=== PATIENT | male | born 1990 | race Caucasian/White ===

== ENCOUNTER 2022-10-22 09:41 | Inpatient (IN) | payer OTHER, SELFPAY ==
--- NOTE | 2022-10-22 | ECG_ITS ---
Test Reason : COCAINE USE Blood Pressure : / mmHG Vent. Rate : 081 BPM Atrial Rate : 081 BPM P-R Int : 124 ms QRS Dur : 084 ms QT Int : 356 ms P-R-T Axes : 035 081 047 degrees QTc Int : 413 ms Normal sinus rhythm Normal ECG No previous ECGs available Referred By: Cailin Souza Electronically Signed By:ERLIN PALACIOS MD
[2022-10-22 09:49] VITALS: BP 138/81; BP 142/90; PULSE 86; PULSE 96; RESP 14; TEMP 36.6; O2SAT 98; BMI 28.7
--- NOTE | 2022-10-22 10:35 | ED_ITS ---
HPI - Psych General Chief Complaint: Psychiatric Symptoms Stated Complaint: SI, SEC 12 Time Seen by Provider: 10/22/22 09:55 Source: patient and EMS Mode of arrival: EMS Limitations: no limitations History of Present Illness HPI Narrative: 32-year-old male with a history depression, opiate use disorder, alcohol use disorder presents on a Section 12 with reports of depression. Per the Section 12 patient reports suicidal thoughts the patient denies this from a now. Patient denies any homicidal ideations, hallucinations. Patient reports she was released from [facility] several days ago where he was for inpatient detox for alcohol and heroin. Patient reports is being released he has been drinking daily and using heroin daily. Patient reports sniffing about 1 bundle of heroin a day and unable to quantify his alcohol use. He is on methadone 80 mg daily and received his dose today. He has no physical complaints. Related Data Home Medications Medication Instructions Recorded Confirmed acetaminophen 500 mg tablet 1 tab PO Q6H PRN Pain 10/22/22 10/22/22 aripiprazole 5 mg tablet 1 tab PO DAILY 10/22/22 10/22/22 diphenhydramine HCl 25 mg capsule 50 mg PO BEDTIME 10/22/22 10/22/22 gabapentin 400 mg capsule 1 cap PO TID 10/22/22 10/22/22 hydroxyzine pamoate 25 mg capsule 50 mg PO BID 10/22/22 10/22/22 melatonin 10 mg tablet 1 tab PO BEDTIME 10/22/22 10/22/22 thiamine HCl (vitamin B1) 100 mg 1 tab PO DAILY 10/22/22 10/22/22 tablet (Vitamin B-1) venlafaxine 150 mg 1 cap PO DAILY 10/22/22 10/22/22 capsule,extended release 24 hr Allergies Allergy/AdvReac Type Severity Reaction Status Date / Time sulfamethoxazole Allergy Anaphylaxis Verified 10/22/22 10:33 [From Bactrim] trimethoprim [From Bactrim] Allergy Anaphylaxis Verified 10/22/22 10:33 Review of Systems Review of Systems: Yes all other systems are reviewed and are negative Constitutional: Constitutional: Reports no additional constitutional complaints, Denies body ache(s), Denies chills, Denies fever(s), Denies headache(s) and Denies weakness Eyes: Eyes: Reports no additional eye complaints and Denies change in vision ENT: Reports system reviewed and no additional complaints, except as documented, Denies dizziness, Denies headache(s), Denies nasal congestion, Denies nasal discharge and Denies neck pain Cardiovascular: Cardiovascular: Reports no additional cardiovascular complaints, Denies chest pain, Denies leg edema and Denies dyspnea Respiratory: Respiratory: Reports no additional respiratory complaints, Denies cough and Denies dyspnea Gastrointestinal: Gastrointestinal: Reports no additional gastrointestinal complaints, Denies abdominal pain, Denies diarrhea, Denies nausea and Denies vomiting Genitourinary: Genitourinary: Denies urinary incontinence Musculoskeletal: Musculoskeletal: Reports no additional musculoskeletal complaints, Denies back pain, Denies arthralgias, Denies joint swelling, Denies neck pain, Denies numbness and Denies tingling Integumentary/Breasts: Skin/Breast: Reports system reviewed and no additional complaints, except as docu and Denies rash Neurologic: Reports system reviewed and no additional complaints, except as documented, Denies Abnormal speech present, Denies dizziness, Denies headache(s), Denies numbness, Denies tingling and Denies weakness Psychiatric: Psychiatric: Reports depression and Denies suicidal ideation [facility] Past Medical History Attestation statement: The following information was validated with the patient. Source: old records reviewed and nursing notes reviewed Social History Social History Alcohol intake: current Alcohol intake frequency: 3 or more drinks per day Alcohol type: beer Smoked in Last 30 Days: Yes Use of substances other than those prescribed or required for medical reasons: Yes Substance Use Type: Heroin Substance Use Frequency: Daily Last Used Substance: Days (ago) Advance Directives: No Physical Exam Vital Signs: Vital Signs: Last Vital Signs Temp 97.8 F 10/22/22 13:06 Pulse 72 10/22/22 13:06 Resp 16 10/22/22 13:06 BP 142/93 H 10/22/22 13:06 Pulse Ox 100 10/22/22 13:06 O2 Del Method 10/22/22 13:06 BMI result Body Mass Index 28.7 Const: General: cooperative, healthy appearing, comfortable and no acute distress Orientation/consciousness: patient oriented x3 Limitations: no limitations HEENT: Head: Yes normal to inspection Ears: hearing grossly normal bilaterally General nose exam: Normal external nose present Face and sinus: Yes normal facial exam Mouth: Normal oral and palatal mucosa present Throat: Yes posterior oropharynx normal Eyes: General: appearance normal, both eyes and all related structures Pupils: Equal, round and reactive pupils present Neck: Neck: Yes normal visual inspection Chest: Chest palpation & inspection: normal inspection of the chest Resp: Effort & Inspection: normal respiratory effort Auscultation: clear to auscultation bilaterally Cardio: Rate: regular rate Rhythm: regular rhythm Peripheral pulses: Peripheral pulses 2+ throughout GI: Inspection: Yes normal to inspection Palpation (GI): Soft to palpation and nontender Auscultation: normal bowel sounds Back/Spine/Pelvis: Thoracic/Lumbar Spine: thoracic and lumbar spine normal to inspection Skin: General skin exam: no rashes or lesions noted Neuro: General: patient oriented x3, no focal motor deficits and normal sensation to monofilament Cranial nerves: Yes CN's II-XII intact bilaterally and Yes Equal, round and reactive pupils present Cognition (Neuro): normal cognition Speech: No Abnormal speech present Gait exam (Neuro): Normal gait present Motor exam (neuro): 5/5 motor strength present throughout Extrem: General: Yes normal to inspection Course Course Course Narrative: Reviewed labs which show mildly elevated AST and ALT which are likely secondary to alcohol use disorder. All other labs are unremarkable. No concern for acute ingestion or trauma. Patient placed in physician observation pending disposition Reevaluation(s) Reevaluation #1: Patient admitted to for psych Medications Administered Discontinued Medications Generic Name Dose Route Start Last Admin Trade Name Freq PRN Reason Stop Dose Admin Nicotine 21 mg 10/22/22 10:35 10/22/22 10:39 Nicotine 21 Mg Patch.Td24 TRANSDERMA 10/22/22 10:36 21 mg ONCE ONE Administration Medical Decision Making Medical Decision Making [facility] Narrative: 32-year-old male with a history of opiate use disorder, alcohol use disorder, depression here with complaints of feeling depressed, continuing to use heroin and alcohol with recent discharge from detox facility. Patient sent in on a Section 12 for suicidal thoughts. Patient now currently denying SI. Will check labs, drug screen. No concern for acute ingestion or trauma. Patient will need crisis evaluation once medically cleared Discharge Plan Discharge Clinical Impression: Depression Patient Disposition: Admitted As Inpatient Interventions: King-Suicide Risk Severity Scale Last Done: 10/22/22 10:24 Admission Worksheet (ED) Last Done: 10/22/22 16:44 Discharge Date/Time: 10/22/22 16:45
[2022-10-22] MEDS: Nicotine 21 MG PATCH.TD24 TRANSDERMA (10:39)
[2022-10-22 11:04] LABS: MANUAL DIFF FLAG NO
[2022-10-22 11:07] LABS: Basophils Percent Auto 0.3 % (0-2); Eosinophils Absolute Auto 0.1 X10*3/uL (0.0-0.4); Eosinophils Percent Auto 0.9 % (0-4); Hematocrit 39.1 % (42.0-52.0); Hemoglobin 13.3 g/dl (14.0-18.0); Imm Gran Abs Auto 0.03 X10*3/uL (0.00-0.03); Imm Gran Pct Auto 0.3 % (0.0-0.4); Lymphocytes Absolute Auto 1.7 X10*3/uL (1.2-4.9); Lymphocytes Percent Auto 16.4 % (20-40); Mean Corpuscular Hemoglobin 31.5 pg (27.0-33.0); Mean Corpuscular Volume 92.7 fL (80.0-98.0); Mean Platelet Volume 9.8 fL (9.4-12.4); Monocytes Absolute Auto 0.7 X10*3/uL (0.1-1.2); Neutrophils Absolute Auto 7.6 x10*3/uL (2.0-8.3); Neutrophils Percent Auto 75.1 % (45-73); Platelet Count 322 X10*3/uL (160-400); Red Blood Count 4.22 X10*6/uL (4.60-5.80); White Blood Count 10.2 X10*3/uL (4.8-10.8)
[2022-10-22 11:24] LABS: Ethanol < 10 mg/dL
[2022-10-22 11:33] LABS: Alanine Aminotransferase 44 U/L (0-40); Albumin Level 4.4 g/dL (3.5-5.0); Alkaline Phosphatase 86 U/L (39-117); Anion Gap 10 (12-20); Aspartate Amino Transferase 45 U/L (5-37); Bilirubin Direct 0.2 mg/dL (0.0-0.5); Bilirubin Total 0.5 mg/dL (0.0-1.0); Blood Urea Nitrogen 9 mg/dL (9-16); Calcium 9.2 mg/dL (8.4-10.2); Carbon Dioxide 30 mmol/L (22-29); Chloride 103 mmol/L (96-108); Creatinine Clr Calc Pharmacy 160.1; Estimated Glomerular Filt Rate > 60; Glucose Random 115 mg/dL (60-115); Salicylate < 5.0 mg/dL (15-30); Sodium 139 mmol/L (135-145); Total Protein 6.7 g/dL (6.5-8.0)
[2022-10-22 12:32] LABS: Fentanyl, urine POSITIVE (Not Detect)
[2022-10-22 12:44] LABS: Amphetamine Screen Urine Not Detected (Not Detect); Barbiturates, Urine Not Detected (Not Detect); Benzodiazepines Screen Urine Not Detected (Not Detect); Cannabinoid Screen Urine POSITIVE (Not Detect); Cocaine Screen Urine POSITIVE (Not Detect); Opiate Screen Urine Not Detected (Not Detect)
--- NOTE | 2022-10-22 12:53 | PHA.MEDREC ---
Pharmacy Consult ? Medication Reconciliation Pharmacy has completed the medication reconciliation. Spoke to patient at bedside
[2022-10-22 12:56] LABS: Phencyclidine Screen Urine Not Detected (Not Detect)
[2022-10-22 13:06] VITALS: BP 142/93; PULSE 72; RESP 16; TEMP 36.6; O2SAT 100
[2022-10-22 14:10] LABS: Acetaminophen LAB < 1 mcg/mL (<30)
[2022-10-22 15:28] LABS: COVID-19 Test Negative (Negative); IDNOW Serial# 16C4AD1C
[2022-10-22] MEDS: Acetaminophen 325 MG TABLET 650 MG PO (17:18)
[2022-10-22 17:21] VITALS: BP 140/91; PULSE 86; RESP 18; O2SAT 98
--- NOTE | 2022-10-22 18:37 | PC.ADMIT ---
Pt was admitted from the [facility] ED POD at 1645. Pt is a CV. Pt presented to Crisis as a walk-in. Reporting struggling with sobriety. Pt has had multiple detox admissions. Pt reports depression in regards to relapsing on alcohol and opioids. Pt was positive for Fentanyl, Cocaine, and THC. Covid negative. Pt placed on 15 minute safety checks. Safety tool and treatment plan complete. Pt oriented to unit. Pt already received flu vaccine for season. Pt is a current everyday smoker and requested nicotine replacement, aware. Pt is alert and oriented. Pt appears flat and guarded but calm and cooperative.
[2022-10-22] MEDS: hydrOXYzine HCL 25 MG TABLET 50 MG PO (19:53)
[2022-10-22] MEDS: Gabapentin 400 MG CAPSULE PO (19:53)
[2022-10-22] MEDS: diphenhydrAMINE HCL 25 MG CAPSULE 50 MG PO (19:53)
[2022-10-23 08:03] LABS: Cholesterol 200 mg/dL; HDL Cholesterol 51 mg/dL; LDL Cholesterol Calculated 121 mg/dl; Magnesium 2.5 mg/dL (1.6-2.6); Triglycerides 144 mg/dL
[2022-10-23 08:19] LABS: Thyroid Stimulating Hormone 0.52 uIU/mL (0.32-4.0)
[2022-10-23] MEDS: Thiamine HCL 100 MG TABLET PO (08:31)
[2022-10-23] MEDS: hydrOXYzine HCL 25 MG TABLET 50 MG PO ×2 (08:31→20:14)
[2022-10-23] MEDS: ARIPiprazole 5 MG TABLET PO (08:31)
[2022-10-23] MEDS: Gabapentin 400 MG CAPSULE PO ×3 (08:32→20:14)
[2022-10-23] MEDS: Venlafaxine HCl ER 150 MG CAP.ER.24H PO (08:32)
[2022-10-23] MEDS: Acetaminophen 325 MG TABLET 650 MG PO ×2 (08:32→17:09)
[2022-10-23 08:33] LABS: Estimated Average Glucose 97 mg/dL
[2022-10-23 09:07] VITALS: BP 108/60; PULSE 76; RESP 16; TEMP 36; O2SAT 96
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
[2022-10-23] MEDS: Nicotine 21 MG PATCH.TD24 TRANSDERMA (10:25)
--- NOTE | 2022-10-23 10:31 | HE.PHANOTE ---
METHADONE CONFIRMATION FORM FROM [facility]. DOSE CONFIRMED TO BE 80MG DAILY LAST DOSE 10/22
[2022-10-23] MEDS: methADONE HCl 20 MG/2 ML ORAL.CONC 80 MG PO (10:46)
[2022-10-23 11:55] LABS: Folate 15.3 ng/mL (> or = 4.0); Vitamin B12 596 pg/mL (200-900)
[2022-10-23] MEDS: buPROPion HCl XL 300 MG TAB.ER.24H PO (14:18)
[2022-10-23 16:03] VITALS: BP 136/86; PULSE 94
[2022-10-23] MEDS: diphenhydrAMINE HCL 25 MG CAPSULE 50 MG PO (20:14)
[2022-10-23] MEDS: traZODone HCL 50 MG TABLET PO (20:16)
[2022-10-24 07:50] VITALS: BP 131/71; PULSE 80; RESP 16; TEMP 37.4; O2SAT 97
[2022-10-24] MEDS: methADONE HCl 20 MG/2 ML ORAL.CONC 80 MG PO (09:48)
[2022-10-24] MEDS: Nicotine 21 MG PATCH.TD24 TRANSDERMA (09:48)
[2022-10-24] MEDS: buPROPion HCl XL 300 MG TAB.ER.24H PO (09:49)
[2022-10-24] MEDS: Venlafaxine HCl ER 150 MG CAP.ER.24H PO (09:49)
[2022-10-24] MEDS: Gabapentin 400 MG CAPSULE PO ×3 (09:49→19:27)
[2022-10-24] MEDS: hydrOXYzine HCL 25 MG TABLET 50 MG PO ×2 (09:49→19:27)
[2022-10-24] MEDS: Thiamine HCL 100 MG TABLET PO (09:49)
[2022-10-24] MEDS: ARIPiprazole 5 MG TABLET PO (09:49)
[2022-10-24] MEDS: Acetaminophen 325 MG TABLET 650 MG PO (14:05)
[2022-10-24 16:46] VITALS: BP 141/81; PULSE 110; RESP 18; TEMP 36.2; O2SAT 97
[2022-10-24] MEDS: traZODone HCL 50 MG TABLET PO (19:25)
[2022-10-24] MEDS: diphenhydrAMINE HCL 25 MG CAPSULE 50 MG PO (19:26)
--- NOTE | 2022-10-24 20:27 | P.PNPSI_ITS ---
Subjective Subjective Date of Service: 10/24/22 Reason For Visit: SI, Interim History: Patient depressed and withdrawn agreeable to increasing Abilify 7.5 mg for augmentation Mental Status Exam Mental Status Exam Narrative: Mental Status Exam Narrative: Appearance: Casually dressed sad looking Behavior: Cooperative psychomotor: Some psychomotor retardation Speech: Soft Thought proccess logical some poverty of content Thought content: Hopelessness helplessness despondency denies active self-harm Mood: Depressed Affect: Constricted to blunted SI:denies active self-harm HI:denies VH/AH:none Delusions: None noted Insight/judgment: Unclear motivation Memory/cog: Intact as tested Diagnostics Vital Signs (24Hr): Vital Signs - 24 hr 10/24/22 07:50 10/24/22 16:46 Temperature 99.4 F 97.2 F Pulse Rate 80 110 H Respiratory Rate 16 18 Blood Pressure 131/71 141/81 H Pulse Oximetry 97 97 Oxygen Delivery Method Room Air Room Air BMI result Body Mass Index 28.7 Labs Results: 10/22/22 10:59 10/22/22 10:59 Labs: Laboratory Results - last 48 hr 10/23/22 10/23/22 10/23/22 07:10 07:10 07:10 Estimat Average Glucose 97 Hemoglobin A1c % 5.0 Magnesium 2.5 Triglycerides 144 Cholesterol 200 LDL Cholesterol, Calc 121 HDL Cholesterol 51 Vitamin B12 596 Folate 15.3 TSH 0.52 Free T4 0.90 Medications Medications Current Medications Acetaminophen (Acetaminophen 325 Mg Tablet) 650 mg PO Q6H PRN PRN Reason: Headache/Pain Mild Scale (1-3) Last Admin: 10/24/22 14:05 Dose: 650 mg Al Hydroxide/Mg Hydroxide (Magnesium Hydrox/Alum Hydrox 30 Ml Oral.Susp) 30 ml PO Q6H PRN PRN Reason: Heartburn/Nausea Aripiprazole (Aripiprazole 5 Mg Tablet) 5 mg PO DAILY LUIS Last Admin: 10/24/22 09:49 Dose: 5 mg Bupropion HCl (Bupropion Hcl Xl 300 Mg Tab.Er.24h) 300 mg PO DAILY LUIS Last Admin: 10/24/22 09:49 Dose: 300 mg Diphenhydramine HCl (Diphenhydramine Hcl 25 Mg Capsule) 50 mg PO BEDTIME LUIS Last Admin: 10/24/22 19:26 Dose: 50 mg Gabapentin (Gabapentin 400 Mg Capsule) 400 mg PO TID LUIS Last Admin: 10/24/22 19:27 Dose: 400 mg Hydroxyzine HCl (Hydroxyzine Hcl 25 Mg Tablet) 50 mg PO BID [facility] Last Admin: 10/24/22 19:27 Dose: 50 mg Magnesium Hydroxide (Milk Of Magnesia 30 Ml Oral.Susp) 30 ml PO DAILY PRN PRN Reason: Constipation Methadone HCl (Methadone Hcl 20 Mg/2 Ml Oral.Conc) 80 mg PO DAILY [facility] Last Admin: 10/24/22 09:48 Dose: 80 mg Nicotine (Nicotine 21 Mg Patch.Td24) 21 mg TRANSDERMA DAILY [facility] Last Admin: 10/24/22 09:48 Dose: 21 mg Pharmacy Consult (Consult Rx Perform Med Rec) 1 each MISCELLANE ONCE PRN PRN Reason: Consult order Thiamine HCl (Thiamine Hcl 100 Mg Tablet) 100 mg PO DAILY [facility] Last Admin: 10/24/22 09:49 Dose: 100 mg Trazodone HCl (Trazodone Hcl 50 Mg Tablet) 50 mg PO BEDTIME PRN PRN Reason: Insomnia Last Admin: 10/24/22 19:25 Dose: 50 mg Venlafaxine HCl (Venlafaxine Hcl Er 150 Mg Cap.Er.24h) 150 mg PO DAILY [facility] Last Admin: 10/24/22 09:49 Dose: 150 mg Allergies Allergies Allergy/AdvReac Type Severity Reaction Status Date / Time sulfamethoxazole Allergy Anaphylaxis Verified 10/22/22 10:33 [From Bactrim] trimethoprim [From Bactrim] Allergy Anaphylaxis Verified 10/22/22 10:33 Assessment & Plan Assessment & Plan (1) Major depressive disorder, recurrent severe without psychotic features: Status: Acute Code(s): F33.2 - Major depressive disorder, recurrent severe without psychotic features (2) Methadone maintenance therapy patient: Status: Acute Code(s): F11.20 - Opioid dependence, uncomplicated (3) Alcohol use disorder: Status: Acute Code(s): F19.90 - Other psychoactive substance use, unspecified, uncomplicated Plan Effexor Wellbutrin Abilify monitor mood and safety monitor for withdrawal may benefit from CSS referral patient somewhat vague historian regarding nature of his current relationship with his girlfriend he appears despondent regarding being in the [facility] Increase Abilify to 7.5 mg I spent minutes with the patient and/or on the patient floor today, great er than?50% of which was spent counseling/coordinating care. Reason for contiued inpatient stay Substantial Risk for: harm to self, inability to function and rapid decompensation
[2022-10-24] MEDS: Nicotine Polacrilex 2 MG GUM 4 MG BUCCAL (20:34)
[2022-10-25] MEDS: ARIPiprazole 5 MG TABLET 7.5 MG PO (09:28)
[2022-10-25] MEDS: Gabapentin 400 MG CAPSULE PO ×3 (09:29→19:10)
[2022-10-25] MEDS: methADONE HCl 20 MG/2 ML ORAL.CONC 80 MG PO (09:29)
[2022-10-25] MEDS: Thiamine HCL 100 MG TABLET PO (09:29)
[2022-10-25] MEDS: hydrOXYzine HCL 25 MG TABLET 50 MG PO ×2 (09:29→18:45)
[2022-10-25] MEDS: Venlafaxine HCl ER 150 MG CAP.ER.24H PO (09:29)
[2022-10-25 09:36] VITALS: BP 103/59; PULSE 86; RESP 18; TEMP 36.1; O2SAT 97
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
[2022-10-25] MEDS: buPROPion HCl XL 300 MG TAB.ER.24H PO (13:10)
[2022-10-25] MEDS: Nicotine Polacrilex 2 MG GUM 4 MG BUCCAL ×4 (13:10→20:01)
[2022-10-25 16:35] VITALS: BP 135/89; PULSE 100; TEMP 36.8; O2SAT 98
[2022-10-25] MEDS: diphenhydrAMINE HCL 25 MG CAPSULE 50 MG PO (19:10)
[2022-10-25] MEDS: traZODone HCL 50 MG TABLET PO (19:12)
[2022-10-25] MEDS: Acetaminophen 325 MG TABLET 650 MG PO (19:16)
[2022-10-25] MEDS: cloNIDine HCL 0.1 MG TABLET PO (20:23)
[2022-10-26 08:40] VITALS: BP 125/68; PULSE 77; RESP 18; TEMP 36.7; O2SAT 98
[2022-10-26] MEDS: Thiamine HCL 100 MG TABLET PO (09:20)
[2022-10-26] MEDS: hydrOXYzine HCL 25 MG TABLET 50 MG PO ×2 (09:20→19:37)
[2022-10-26] MEDS: buPROPion HCl XL 300 MG TAB.ER.24H PO (09:20)
[2022-10-26] MEDS: Gabapentin 400 MG CAPSULE PO ×3 (09:21→19:37)
[2022-10-26] MEDS: ARIPiprazole 5 MG TABLET 7.5 MG PO (09:21)
[2022-10-26] MEDS: methADONE HCl 20 MG/2 ML ORAL.CONC 80 MG PO (09:22)
[2022-10-26] MEDS: Venlafaxine HCl ER 150 MG CAP.ER.24H PO (09:27)
[2022-10-26] MEDS: Nicotine Polacrilex 2 MG GUM 4 MG BUCCAL ×4 (14:41→19:41)
[2022-10-26] MEDS: cloNIDine HCL 0.1 MG TABLET PO ×2 (16:18→19:40)
[2022-10-26] MEDS: Gabapentin 100 MG CAPSULE PO (16:18)
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
[2022-10-26 18:00] VITALS: BP 132/87; PULSE 89; RESP 18; TEMP 36.9; O2SAT 98
[2022-10-26] MEDS: diphenhydrAMINE HCL 25 MG CAPSULE 50 MG PO (19:36)
[2022-10-26] MEDS: traZODone HCL 100 MG TABLET PO (19:40)
[2022-10-27 06:00] VITALS: BP 123/66; PULSE 89; TEMP 36.7; O2SAT 99
[2022-10-27] MEDS: hydrOXYzine HCL 25 MG TABLET 50 MG PO ×2 (09:39→19:59)
[2022-10-27] MEDS: Venlafaxine HCl ER 150 MG CAP.ER.24H PO (09:39)
[2022-10-27] MEDS: ARIPiprazole 5 MG TABLET 7.5 MG PO (09:39)
[2022-10-27] MEDS: Gabapentin 400 MG CAPSULE PO ×3 (09:39→19:58)
[2022-10-27] MEDS: Thiamine HCL 100 MG TABLET PO (09:39)
[2022-10-27] MEDS: buPROPion HCL 100 MG TABLET PO ×2 (09:41→14:08)
[2022-10-27] MEDS: methADONE HCl 20 MG/2 ML ORAL.CONC 80 MG PO (09:45)
[2022-10-27] MEDS: cloNIDine HCL 0.1 MG TABLET PO ×3 (10:19→19:58)
[2022-10-27] MEDS: Nicotine Polacrilex 2 MG GUM 4 MG BUCCAL ×5 (10:19→22:10)
[2022-10-27] MEDS: Gabapentin 100 MG CAPSULE PO (10:19)
[2022-10-27 10:25] LABS: Alanine Aminotransferase 24 U/L (0-40); Albumin Level 3.8 g/dL (3.5-5.0); Alkaline Phosphatase 77 U/L (39-117); Aspartate Amino Transferase 17 U/L (5-37); Bilirubin Direct < 0.2 mg/dL (0.0-0.5); Bilirubin Total 0.2 mg/dL (0.0-1.0); TSH reflex Free T4 1.17 uIU/mL (0.32-4.0)
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
[2022-10-27] MEDS: Acetaminophen 325 MG TABLET 650 MG PO ×2 (14:08→19:59)
[2022-10-27] MEDS: QUEtiapine Fumarate 25 MG TABLET PO (14:08)
[2022-10-27] MEDS: QUEtiapine Fumarate 50 MG TABLET PO ×2 (17:54→19:58)
[2022-10-27 18:00] VITALS: BP 128/68; PULSE 79; RESP 16; TEMP 36.3; O2SAT 99
[2022-10-27] MEDS: traZODone HCL 100 MG TABLET PO (19:58)
[2022-10-27] MEDS: diphenhydrAMINE HCL 25 MG CAPSULE 50 MG PO (19:59)
[2022-10-28 07:00] VITALS: BMI 29.9
[2022-10-28] MEDS: methADONE HCl 20 MG/2 ML ORAL.CONC 80 MG PO (09:30)
[2022-10-28] MEDS: ARIPiprazole 5 MG TABLET 7.5 MG PO (09:30)
[2022-10-28] MEDS: buPROPion HCL 100 MG TABLET PO ×2 (09:30→14:11)
[2022-10-28] MEDS: Venlafaxine HCl ER 150 MG CAP.ER.24H PO (09:30)
[2022-10-28] MEDS: Gabapentin 400 MG CAPSULE PO ×3 (09:30→19:33)
[2022-10-28] MEDS: hydrOXYzine HCL 25 MG TABLET 50 MG PO ×2 (09:30→19:33)
[2022-10-28] MEDS: Thiamine HCL 100 MG TABLET PO (09:30)
[2022-10-28 10:26] VITALS: BP 108/57; PULSE 75; RESP 18; TEMP 36.6; O2SAT 97
[2022-10-28] MEDS: Nicotine Polacrilex 2 MG GUM 4 MG BUCCAL ×4 (12:16→19:36)
[2022-10-28] MEDS: QUEtiapine Fumarate 25 MG TABLET PO ×2 (12:16→15:31)
[2022-10-28] MEDS: Acetaminophen 325 MG TABLET 650 MG PO ×2 (14:11→20:15)
[2022-10-28] MEDS: cloNIDine HCL 0.1 MG TABLET PO ×2 (14:14→19:34)
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
[2022-10-28 19:20] VITALS: BP 130/63; PULSE 108; TEMP 35.9
[2022-10-28] MEDS: diphenhydrAMINE HCL 25 MG CAPSULE 50 MG PO (19:32)
[2022-10-28] MEDS: traZODone HCL 100 MG TABLET PO ×2 (19:33→21:19)
[2022-10-28] MEDS: QUEtiapine Fumarate 50 MG TABLET PO ×2 (19:35→21:18)
[2022-10-29] MEDS: Gabapentin 400 MG CAPSULE PO ×3 (09:21→19:30)
[2022-10-29] MEDS: methADONE HCl 20 MG/2 ML ORAL.CONC 80 MG PO (09:21)
[2022-10-29] MEDS: buPROPion HCL 100 MG TABLET PO ×2 (09:21→14:05)
[2022-10-29] MEDS: Thiamine HCL 100 MG TABLET PO (09:21)
[2022-10-29] MEDS: hydrOXYzine HCL 25 MG TABLET 50 MG PO ×2 (09:21→19:31)
[2022-10-29] MEDS: ARIPiprazole 5 MG TABLET 7.5 MG PO (09:21)
[2022-10-29] MEDS: Venlafaxine HCl ER 150 MG CAP.ER.24H PO (09:21)
[2022-10-29 10:06] VITALS: BP 110/66; PULSE 78; RESP 18; TEMP 36.3; O2SAT 97
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
[2022-10-29] MEDS: Nicotine Polacrilex 2 MG GUM 4 MG BUCCAL ×4 (14:05→19:34)
[2022-10-29] MEDS: cloNIDine HCL 0.1 MG TABLET PO ×2 (14:05→19:31)
[2022-10-29] MEDS: Acetaminophen 325 MG TABLET 650 MG PO (14:05)
[2022-10-29] MEDS: QUEtiapine Fumarate 50 MG TABLET PO ×2 (14:05→19:31)
[2022-10-29 14:07] VITALS: BP 119/66; PULSE 107
[2022-10-29 19:30] VITALS: BP 117/68; PULSE 110; RESP 14; TEMP 36.1
[2022-10-29] MEDS: QUEtiapine Fumarate 100 MG TABLET PO ×2 (19:31→21:03)
[2022-10-29] MEDS: diphenhydrAMINE HCL 25 MG CAPSULE 50 MG PO (19:31)
[2022-10-29] MEDS: traZODone HCL 100 MG TABLET PO ×2 (19:31→21:03)
[2022-10-30 06:00] VITALS: BP 107/62; PULSE 84; TEMP 36.1; O2SAT 97
[2022-10-30] MEDS: Venlafaxine HCl ER 150 MG CAP.ER.24H PO (09:22)
[2022-10-30] MEDS: Gabapentin 400 MG CAPSULE PO ×3 (09:22→20:31)
[2022-10-30] MEDS: hydrOXYzine HCL 25 MG TABLET 50 MG PO ×2 (09:22→20:30)
[2022-10-30] MEDS: Thiamine HCL 100 MG TABLET PO (09:22)
[2022-10-30] MEDS: ARIPiprazole 5 MG TABLET 7.5 MG PO (09:22)
[2022-10-30] MEDS: buPROPion HCL 100 MG TABLET PO ×2 (09:22→14:40)
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
[2022-10-30] MEDS: QUEtiapine Fumarate 50 MG TABLET PO (10:52)
[2022-10-30] MEDS: cloNIDine HCL 0.1 MG TABLET PO ×2 (10:52→20:31)
[2022-10-30] MEDS: Nicotine Polacrilex 2 MG GUM 4 MG BUCCAL ×4 (10:53→23:01)
[2022-10-30 18:00] VITALS: BP 113/79; PULSE 101; RESP 16; TEMP 36.3; O2SAT 98
[2022-10-30] MEDS: methADONE HCl 20 MG/2 ML ORAL.CONC 80 MG PO (18:38)
[2022-10-30] MEDS: QUEtiapine Fumarate 100 MG TABLET PO ×2 (20:30→21:53)
[2022-10-30] MEDS: diphenhydrAMINE HCL 25 MG CAPSULE 50 MG PO (20:31)
[2022-10-30] MEDS: traZODone HCL 100 MG TABLET PO ×2 (20:31→21:53)
[2022-10-31 00:09] LABS: Influenza A PCR NEGATIVE (Negative); Influenza B PCR NEGATIVE (Negative); Resp Syncy Virus RNA Qual PCR NEGATIVE (Negative); SARS COV2 PCR INHOUSE NEGATIVE (Negative)
[2022-10-31 09:17] VITALS: BP 104/58; PULSE 91; RESP 18; TEMP 36.6; O2SAT 97
[2022-10-31] MEDS: Venlafaxine HCl ER 150 MG CAP.ER.24H PO (09:27)
[2022-10-31] MEDS: ARIPiprazole 5 MG TABLET 7.5 MG PO (09:27)
[2022-10-31] MEDS: QUEtiapine Fumarate 50 MG TABLET PO ×3 (09:27→20:36)
[2022-10-31] MEDS: Gabapentin 400 MG CAPSULE PO ×3 (09:27→20:24)
[2022-10-31] MEDS: hydrOXYzine HCL 25 MG TABLET 50 MG PO ×2 (09:27→20:25)
[2022-10-31] MEDS: Nicotine Polacrilex 2 MG GUM 4 MG BUCCAL ×4 (09:27→20:37)
[2022-10-31] MEDS: buPROPion HCL 100 MG TABLET PO ×2 (09:27→14:09)
[2022-10-31] MEDS: Thiamine HCL 100 MG TABLET PO (09:27)
[2022-10-31 14:07] VITALS: BP 113/66; PULSE 80
[2022-10-31] MEDS: cloNIDine HCL 0.1 MG TABLET PO ×2 (14:09→20:26)
[2022-10-31] MEDS: Acetaminophen 325 MG TABLET 650 MG PO (14:11)
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
[2022-10-31 18:00] VITALS: BP 115/60; PULSE 84; RESP 16; TEMP 37; O2SAT 99
[2022-10-31] MEDS: diphenhydrAMINE HCL 25 MG CAPSULE 50 MG PO (20:24)
[2022-10-31] MEDS: traZODone HCL 100 MG TABLET PO (20:26)
[2022-10-31] MEDS: QUEtiapine Fumarate 50 MG TABLET 150 MG PO ×2 (20:35→22:48)
[2022-11-01] MEDS: Venlafaxine HCl ER 150 MG CAP.ER.24H PO (09:27)
[2022-11-01] MEDS: Gabapentin 400 MG CAPSULE PO (09:27)
[2022-11-01] MEDS: ARIPiprazole 5 MG TABLET 7.5 MG PO (09:27)
[2022-11-01] MEDS: hydrOXYzine HCL 25 MG TABLET 50 MG PO (09:27)
[2022-11-01] MEDS: buPROPion HCL 100 MG TABLET PO ×2 (09:28→13:16)
[2022-11-01] MEDS: Thiamine HCL 100 MG TABLET PO (09:28)
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
[2022-11-01] MEDS: methADONE HCl 20 MG/2 ML ORAL.CONC 80 MG PO (12:30)
[2022-11-01] MEDS: Nicotine Polacrilex 2 MG GUM 4 MG BUCCAL (13:15)
[2022-11-01] MEDS: Acetaminophen 325 MG TABLET 650 MG PO (13:15)
[2022-11-01] MEDS: QUEtiapine Fumarate 50 MG TABLET PO (13:15)
== END 2022-11-01 13:40 | disposition home or self-care (01) | DRG 751 ==
LOC: HO.ED 15:40 → HO.PM5 16:32
PROVIDERS: Nurse Practitioner Family; Admitting Provider Clinical Nurse Specialist Psychiatric/Mental Health, Adult; Emergency Provider Emergency Medicine Emergency Medical Services; Visit Provider Psychiatry & Neurology Psychiatry
DX: F33.2 Major depressive disorder, recurrent severe without psychotic features (principal); R45.851 Suicidal ideations; F10.20 Alcohol dependence, uncomplicated; F11.20 Opioid dependence, uncomplicated; F17.210 Nicotine dependence, cigarettes, uncomplicated; Z20.822 Contact with and (suspected) exposure to COVID-19; Z71.6 Tobacco abuse counseling; Z79.899 Other long term (current) drug therapy
CPT/HCPCS: 0241U; 36415; 80048; 80061; 80076; 80143; 80179; 80307; 82077; 82607; 82746; 83036; 83735; 84439; 84443; 85025; 87635; 93005; 99285